=== PATIENT | female | born 2000 | race Caucasian/White ===

== ENCOUNTER 2020-05-27 17:07 | Emergency (ER) | payer OTHER ==
[~2020-05-27] VITALS: Ht 152.4 cm; Wt 54.4 kg
[2020-05-27] MEDS ORDERED: DOXYCYCLINE 10100 MG PO (18:19)
[2020-05-27] MEDS ORDERED: FLAGYL500 M1 PO (18:19)
[2020-05-27 18:33] VITALS: BP 120/75
== END 2020-05-27 18:34 | disposition home or self-care (01) ==
LOC: ER 17:07
DX: S61.051A Open bite of right thumb without damage to nail, initial encounter (principal); M32.9 Systemic lupus erythematosus, unspecified; Z88.0 Allergy status to penicillin; W54.0XXA Bitten by dog, initial encounter; Y93.89 Activity, other specified; Y92.69 Other specified industrial and construction area as the place of occurrence of the external cause; Y99.9 Unspecified external cause status